=== PATIENT | female | born 1995 | race African-American/Black ===

== ENCOUNTER 2017-10-11 19:40 | Emergency (ER) | payer SELFPAY ==
[~2017-10-11] VITALS: Ht 172.7 cm; Wt 113.0 kg
[2017-10-11 22:43] VITALS: BP 123/77
== END 2017-10-12 01:10 | disposition left against medical advice (07) ==
LOC: ER 19:40
DX: R07.81 Pleurodynia (principal); M25.562 Pain in left knee
CPT/HCPCS: 71045; 73560; 81025; 99284